=== PATIENT | female | born 1995 | race Hispanic/Latino ===

== ENCOUNTER 2018-02-02 23:05 | Inpatient (IN) | payer OTHER ==
[2018-02-03] MEDS ORDERED: LACTATED RINGER'S 1000 ML IV (00:15)
[2018-02-03] MEDS ORDERED: LR 1,000 ML IV (00:15)
[2018-02-03 01:53] LABS: HEMATOCRIT 28.7 % (36.0-47.0); MEAN CORPUSCULAR HEMOGLOBIN 23.8 pg (27.0-33.0); MEAN CORPUSCULAR HGB CONC 31.4 g/dl (32.0-36.5); MEAN CORPUSCULAR VOLUME 75.9 fl (80.0-96.0); PLATELET COUNT, AUTOMATED 227 10^3/uL (150-450); RED BLOOD COUNT 3.78 10^6/uL (4.00-5.40); RED CELL DISTRIBUTION WIDTH 14.3 % (11.5-14.5); WHITE BLOOD COUNT 15.4 10^3/uL (4.0-10.0)
== END 2018-02-03 06:50 | disposition home or self-care (01) | DRG 780 ==
LOC: M LDO 23:05 → M LDI 02-03 00:13
PROVIDERS: Obstetrics & Gynecology
DX: O47.1 False labor at or after 37 completed weeks of gestation (principal); Z3A.38 38 weeks gestation of pregnancy; J45.20 Mild intermittent asthma, uncomplicated; Z79.899 Other long term (current) drug therapy; O99.513 Diseases of the respiratory system complicating pregnancy, third trimester

== ENCOUNTER → 2020-02-22 | Outpatient (REF) | payer OTHER ==
[~2020-02-22] MED LIST: COLA100C5 PO; FERR325T3 PO; IBUP-1114 PO; KEFL500C17 PO; MAPA500T2 PO; MILK120011 PO; PRENTAB9 PO
== END ==
LOC: M SFHCLUC 16:29
PROVIDERS: ATTEND Physician Assistant
DX: R30.0 Dysuria (principal)